=== PATIENT | male | born 1975 | race Caucasian/White ===

== ENCOUNTER 2024-03-13 09:40 | Inpatient (IN) ==
[2024-03-13 11:36] LABS: ABS Lymphocytes 1.4 10^3/uL (1.0-4.8); ABS Monocytes 1.5 10^3/uL (0.0-1.1); ABS Neutrophils 6.4 10^3/uL (1.5-7.6); ABS Nucleated RBC 0.01 10^3/ul; Eosinophil % 0.2 %; Hematocrit 45.6 % (38-53); Hemoglobin 16.2 g/dL (13.2-16.3); Lymphocyte % 15.5 %; Mean Corpuscular Hemoglobin 33.9 pg (27-33); Mean Corpuscular Hgb Conc 35.6 g/dL (31-36); Mean Corpuscular Volume 95.2 fL (80-97); Mean Platelet Volume 8.8 fL (7.5-11.2); Nucleated Red Blood Cells % 0.1 %/100WBC (0.0-0.8); Platelet Count 230 10^3/uL (150-450); Red Blood Count 4.79 10^6/uL (4.06-5.63); Red Cell Distribution Width 13.1 % (12-17); White Blood Count 9.3 10^3/uL (3.6-10.2)
[2024-03-13 11:39] LABS: Urine Appearance Clear; Urine Bilirubin Negative (Negative); Urine Blood Negative (Negative); Urine Color Yellow; Urine Glucose Negative (Negative); Urine Ketones Trace (Negative); Urine Nitrite Negative (Negative); Urine Protein 1+ (>=30 mg/dL) (Negative); Urine Specific Gravity 1.035 (1.002-1.030); Urine Urobilinogen Negative (Negative)
[2024-03-13 12:13] LABS: Albumin 4.8 g/dL (3.5-5.7); Albumin/Globulin Ratio 1.8 (1-3); C Reactive Protein 6.95 mg/L (<8.01); Calcium 9.6 mg/dL (8.6-10.3); Creatinine, Serum 1.05 mg/dL (0.67-1.17); Globulin 2.6 g/dL (2-4); Total Bilirubin 1.1 mg/dL (0.2-1.0); Total Protein 7.4 g/dL (6.4-8.9); eGFR CKD-EPI 88.7 (>60)
[2024-03-13 12:18] LABS: Urine Bacteria Absent /HPF (Absent); Urine Red Blood Cell Trace(0-2/hpf) /HPF (0-Trace); Urine White Blood Cell Trace(0-5/hpf) /HPF (0-Trace)
[2024-03-13] MEDS: Lactated Ringers 1000 ml BAG 1,000 ML IV ONE (12:23)
[2024-03-13] MEDS: Iohexol 350 (CONTRAST) 500 ML MDV IV ONE (12:43)
[2024-03-13] MEDS ORDERED: Lidocaine 2% PF 5 ML VIAL ONE (15:49)
[2024-03-13] MEDS ORDERED: Propofol 10 MG/ML 20 ML BTL ONE (15:49)
[2024-03-13] MEDS ORDERED: fentaNYL 250 mcg/5 ml 50 MCG/ML 5 ml VIAL (250 MCG) ONE (15:50)
[2024-03-13] MEDS ORDERED: Midazolam 2 mg/2 ml VIAL 1 mg/ml 2 ml VIAL (2 mg) ONE ×2 (15:50→17:12)
[2024-03-13] MEDS ORDERED: Succinylcholine 200 mg VIAL 20 mg/ml 10 ml VIAL (200 mg) ONE (16:03)
[2024-03-13 16:39] LABS: Carcinoembryonic Antigen 2.9 ng/mL (0.1-5.0)
[2024-03-13] MEDS ORDERED: Sodium Citrate/Citric Acid LIQ 15 ML UDC ONE (16:46)
[2024-03-13] MEDS ORDERED: Rocuronium 50 mg VIAL 10 mg/ml 5 ml VIAL (50 mg) ONE ×2 (16:58→17:00)
[2024-03-13] MEDS: Sodium Citrate/Citric Acid LIQ 15 ML UDC PO ONE (17:06)
[2024-03-13] MEDS: Ertapenem 1 GM in NS 0.9% 50 ML IVPB ONE (17:24)
[2024-03-13] MEDS ORDERED: Dexamethasone IV 4 MG/ML VIAL 1 ml VIAL ONE ×2 (17:35→20:08)
[2024-03-13] MEDS ORDERED: Ondansetron 4 mg VIAL 2 MG/ML 2 ml VIAL ONE (17:35)
[2024-03-13] MEDS ORDERED: HYDROmorphone 0.5 MG/0.5 ML SYRINGE ONE ×3 (17:51→18:32)
[2024-03-13] MEDS: KCL 20 MEQ/100 ML IVPREMIX 20 MEQ/100 ML BAG IV SCH (17:58)
[2024-03-13] MEDS ORDERED: Sevoflurane BOTTLE ONE (18:29)
[2024-03-13] MEDS ORDERED: Acetaminophen IV 1 GM/100ML 1,000 MG/100 ML BAG IV ONE (18:35)
[2024-03-13] MEDS ORDERED: Bupivacaine 0.5% SDV PF 30ML VIAL ONE (19:50)
[2024-03-13] MEDS ORDERED: Artificial Tear OPHTH.OINT 3.5 GM ONE (20:05)
[2024-03-13] MEDS ORDERED: Naloxone 0.4 mg VIAL 0.4 mg/ml 1 ml VIAL IV PRN (21:38)
[2024-03-13] MEDS ORDERED: Ondansetron 4 mg VIAL 2 MG/ML 2 ml VIAL IV PRN (21:38)
[2024-03-13] MEDS ORDERED: HYDROmorphone 1 MG/1 ML SYRINGE IV PRN (21:38)
[2024-03-13] MEDS ORDERED: fentaNYL 100 mcg/2 ml 50 MCG/ML VIAL IV PRN (21:38)
[2024-03-13] MEDS ORDERED: hydrALAZINE 20 mg/ml 1 ML Vial IV ONE (21:45)
[2024-03-13] MEDS: hydrALAZINE 20 mg/ml 1 ML Vial IV IV SLOW PU ONE (21:48)
[2024-03-13] MEDS: Lactated Ringers 1000 ml BAG 1,000 ML IV SCH (23:50)
[2024-03-14] MEDS: Meperidine 50 mg/ml SYRINGE 1 ml IV ONE (00:57)
[2024-03-14] MEDS: Metoclopramide 5 MG/ML VIAL (10 mg) IV SLOW PU ONE (00:57)
[2024-03-14] MEDS: HYDROmorphone 1 MG/1 ML SYRINGE IV SLOW PU PRN (06:10)
[2024-03-14 06:18] LABS: ABS Lymphocytes 0.7 10^3/uL (1.0-4.8); ABS Monocytes 1.2 10^3/uL (0.0-1.1); ABS Neutrophils 10.5 10^3/uL (1.5-7.6); Hematocrit 42.4 % (38-53); Hemoglobin 14.7 g/dL (13.2-16.3); Lymphocyte % 5.9 %; Mean Corpuscular Hemoglobin 32.9 pg (27-33); Mean Corpuscular Hgb Conc 34.7 g/dL (31-36); Mean Corpuscular Volume 94.8 fL (80-97); Mean Platelet Volume 8.7 fL (7.5-11.2); Platelet Count 201 10^3/uL (150-450); Red Blood Count 4.47 10^6/uL (4.06-5.63); Red Cell Distribution Width 12.8 % (12-17); White Blood Count 12.5 10^3/uL (3.6-10.2)
[2024-03-14 06:41] LABS: INR 1.21 (0.85-1.14)
[2024-03-14 06:42] LABS: Calcium 7.7 mg/dL (8.6-10.3); Creatinine, Serum 0.75 mg/dL (0.67-1.17); Magnesium 1.6 mg/dL (1.9-2.7); Phosphorus 4.5 mg/dL (2.5-5.0); Potassium 3.6 mmol/L (3.5-5.0); eGFR CKD-EPI 112.7 (>60)
[2024-03-14] MEDS ORDERED: HYDROmorphone 1 MG/1 ML SYRINGE IV SLOW PU PRN (09:46)
[2024-03-14] MEDS: Acetaminophen IV 1 GM/100ML 1,000 MG/100 ML BAG IV SCH (10:23)
[2024-03-14] MEDS: Magnesium Sulf 4 GM/100 ML IV 4,000 MG/100 ML BAG IVPB ONE (11:22)
[2024-03-14] MEDS: Heparin 5000 UNITS/ML 1 mL VIAL SUBCUT SCH (14:18)
[2024-03-14] MEDS: HYDROmorphone 0.5 MG/0.5 ML SYRINGE IV SLOW PU PRN (14:57)
[2024-03-15 05:51] LABS: ABS Eosinophils 0.1 10^3/uL (0.0-0.5); ABS Lymphocytes 1.1 10^3/uL (1.0-4.8); ABS Monocytes 0.7 10^3/uL (0.0-1.1); ABS Neutrophils 6.8 10^3/uL (1.5-7.6); Eosinophil % 0.8 %; Hematocrit 36.1 % (38-53); Hemoglobin 12.8 g/dL (13.2-16.3); Lymphocyte % 13.1 %; Mean Corpuscular Hemoglobin 33.6 pg (27-33); Mean Corpuscular Hgb Conc 35.4 g/dL (31-36); Mean Corpuscular Volume 94.9 fL (80-97); Mean Platelet Volume 9.3 fL (7.5-11.2); Platelet Count 145 10^3/uL (150-450); Red Cell Distribution Width 12.9 % (12-17); White Blood Count 8.8 10^3/uL (3.6-10.2)
[2024-03-15 06:09] LABS: Calcium 7.3 mg/dL (8.6-10.3); Creatinine, Serum 0.78 mg/dL (0.67-1.17); Magnesium 2.1 mg/dL (1.9-2.7); Potassium 3.3 mmol/L (3.5-5.0); eGFR CKD-EPI 111.4 (>60)
[2024-03-15 08:28] LABS: Phosphorus 2.2 mg/dL (2.5-5.0)
[2024-03-15] MEDS: Potassium Acid Phos 500 mg TAB PO ONE ×3 (11:21→17:35)
[2024-03-16 06:20] LABS: Calcium 8.1 mg/dL (8.6-10.3); Creatinine, Serum 0.76 mg/dL (0.67-1.17); Magnesium 2.2 mg/dL (1.9-2.7); Phosphorus 3.1 mg/dL (2.5-5.0); Potassium 3.5 mmol/L (3.5-5.0); eGFR CKD-EPI 112.3 (>60)
[2024-03-16] MEDS: Ondansetron 4 mg VIAL 2 MG/ML 2 ml VIAL IV PRN (19:48)
[2024-03-17] MEDS ORDERED: Metoclopramide 5 MG/ML VIAL (10 mg) IV PRN (09:17)
[2024-03-18 08:20] LABS: ABS Eosinophils 0.2 10^3/uL (0.0-0.5); ABS Lymphocytes 1.2 10^3/uL (1.0-4.8); ABS Monocytes 1.2 10^3/uL (0.0-1.1); ABS Neutrophils 3.8 10^3/uL (1.5-7.6); Eosinophil % 2.8 %; Hematocrit 35.1 % (38-53); Hemoglobin 12.5 g/dL (13.2-16.3); Lymphocyte % 18.7 %; Mean Corpuscular Hemoglobin 33.3 pg (27-33); Mean Corpuscular Hgb Conc 35.6 g/dL (31-36); Mean Corpuscular Volume 93.6 fL (80-97); Mean Platelet Volume 9.2 fL (7.5-11.2); Platelet Count 242 10^3/uL (150-450); Red Blood Count 3.75 10^6/uL (4.06-5.63); Red Cell Distribution Width 12.7 % (12-17); White Blood Count 6.5 10^3/uL (3.6-10.2)
[2024-03-18 08:37] LABS: Calcium 8.1 mg/dL (8.6-10.3); Creatinine, Serum 0.78 mg/dL (0.67-1.17); Potassium 3.3 mmol/L (3.5-5.0); eGFR CKD-EPI 111.4 (>60)
[2024-03-18 09:52] VITALS: BP 119/80
[2024-03-18] MEDS: KCL 20 MEQ/100 ML IVPREMIX 20 MEQ/100 ML BAG IV ONE (10:31)
== END 2024-03-18 14:25 | disposition home or self-care (01) | DRG 221 ==
LOC: ED 09:40 → EDHOLD 09:40 → OBSVTOIN 15:05 → AA 16:19 → SSU 22:50
PROVIDERS: ADMIT Surgery; ATTEND Surgery